=== PATIENT | female | born 1945 | race Caucasian/White ===

== ENCOUNTER 2022-09-23 10:16 | Outpatient (CLI) | payer MEDICARE, BC | END 2022-09-23 10:17 | disposition home or self-care (01) | LOC: CSHCT 10:16 | PROVIDERS: ATTEND Internal Medicine Cardiovascular Disease | DX: Z01.810 Encounter for preprocedural cardiovascular examination (principal); I48.0 Paroxysmal atrial fibrillation; R91.1 Solitary pulmonary nodule | CPT/HCPCS: 71271; 71275 ==